=== PATIENT | female | born 1995 | race Caucasian/White ===

== ENCOUNTER 2018-03-29 15:10 | Emergency (ER) | payer SELFPAY ==
[~2018-03-29] VITALS: Ht 160 cm; Wt 137.4 kg
== END 2018-03-29 17:00 | disposition home or self-care (01) ==
LOC: FSED 15:10
DX: M54.2 Cervicalgia (principal); S16.1XXA Strain of muscle, fascia and tendon at neck level, initial encounter; V43.52XA Car driver injured in collision with other type car in traffic accident, initial encounter; Y92.488 Other paved roadways as the place of occurrence of the external cause
CPT/HCPCS: 99283

== ENCOUNTER 2018-09-22 15:18 | Emergency (ER) | payer SELFPAY | END 2018-09-22 16:00 | disposition home or self-care (01) | LOC: FSED 15:18 | DX: H16.021 Ring corneal ulcer, right eye (principal) | CPT/HCPCS: 99282 ==

== ENCOUNTER 2021-10-06 18:32 | Emergency (ER) | payer OTHER ==
[~2021-10-06] VITALS: Ht 160 cm; Wt 146.1 kg
[2021-10-06] MEDS ORDERED: ALBUTEROL/IPRATROPIUM 3 ML NEB NEB ONE (19:45)
[2021-10-06] MEDS ORDERED: PREDNISONE 20 MG TAB PO ONE (19:45)
[2021-10-06] MEDS ORDERED: PREDNISONE 20 MG TAB ONE (19:52)
[2021-10-06] MEDS ORDERED: ALBUTEROL/IPRATROPIUM 3 ML NEB ONE (19:53)
[2021-10-06] MEDS ORDERED: EASY NEB COMPR1 EACH INH (20:10)
[2021-10-06] MEDS ORDERED: MUCINEX DM ER1 EACH PO (20:10)
[2021-10-06] MEDS ORDERED: ALBUTEROL2.5 MG/0.5 INH (20:10)
[2021-10-06] MEDS ORDERED: PROAIR HFA INH8.5 GM INH (20:10)
[2021-10-06 20:25] VITALS: BP 120/73
== END 2021-10-06 20:25 | disposition home or self-care (01) ==
LOC: FSED 18:44
DX: R05.9 Cough, unspecified (principal); J20.9 Acute bronchitis, unspecified; J45.901 Unspecified asthma with (acute) exacerbation
CPT/HCPCS: 71046; 99282; J7512

== ENCOUNTER 2021-11-26 12:11 | Emergency (ER) | payer OTHER ==
[~2021-11-26] VITALS: Ht 160 cm; Wt 147.4 kg
[~2021-11-26 12:11] MED LIST: ALBUTEROL2.5 MG/0.5 INH; EASY NEB COMPR1 EACH INH; MUCINEX DM ER1 EACH PO; PROAIR HFA INH8.5 GM INH
[2021-11-26] MEDS ORDERED: IBUPROFEN 600 MG TAB PO STA (12:40)
[2021-11-26] MEDS ORDERED: AMOXICILLIN/CLAVULANATE K 875 MG TAB PO STA (12:40)
[2021-11-26] MEDS ORDERED: AMOX TR-K CLV1 EAC2 PO (12:57)
[2021-11-26] MEDS ORDERED: IBUPROFEN600 MG PO (12:58)
[2021-11-26] MEDS ORDERED: BACITRACIN ZINC 0.9GM TP ONE (13:25)
[2021-11-26] MEDS ORDERED: AMOXICILLIN/CLAVULANATE K 875 MG TAB ONE (13:25)
[2021-11-26] MEDS ORDERED: IBUPROFEN 600 MG TAB ONE (13:25)
== END 2021-11-26 13:33 | disposition home or self-care (01) ==
LOC: FSED 12:41
DX: S61.451A Open bite of right hand, initial encounter (principal); S91.352A Open bite, left foot, initial encounter; W54.0XXA Bitten by dog, initial encounter; Y92.89 Other specified places as the place of occurrence of the external cause; J45.909 Unspecified asthma, uncomplicated
CPT/HCPCS: 99284